=== PATIENT | male | born 1990 | race Caucasian/White ===

== ENCOUNTER 2017-05-31 11:47 | Emergency (ER) | payer SELFPAY ==
[~2017-05-31] VITALS: Ht 175.3 cm; Wt 100.1 kg
[~2017-05-31 11:47] MED LIST: BENADRYL25 MG PO; EPIPEN ADU0.3 MG/0.3 IM
[2017-05-31 11:59] VITALS: BP 121/98
[2017-05-31] MEDS ORDERED: PERCOCET 5/31 TABLET PO (13:18)
[2017-05-31] MEDS ORDERED: KEFLEX500 MG PO (13:18)
== END 2017-05-31 13:37 | disposition home or self-care (01) ==
LOC: EME 11:47
PROC: 3E0234Z Introduction of Serum, Toxoid and Vaccine into Muscle, Percutaneous Approach (ICD-10-PCS; principal; 2017-05-31)
DX: S67.196A Crushing injury of right little finger, initial encounter (principal); S61.316A Laceration without foreign body of right little finger with damage to nail, initial encounter; W23.0XXA Caught, crushed, jammed, or pinched between moving objects, initial encounter; F17.200 Nicotine dependence, unspecified, uncomplicated; Z23 Encounter for immunization
CPT/HCPCS: 73140; 99281; 99284